=== PATIENT | male | born 1970 | race Caucasian/White ===

== ENCOUNTER 2017-03-29 07:48 | Day surgery (SDC) | payer BC ==
[~2017-03-29] VITALS: Ht 167.6 cm; Wt 63.7 kg
[2017-03-29 09:00] VITALS: Ht 167.6 cm; Wt 63.7 kg
[2017-03-29 09:21] VITALS: BP 149/82; PULSE 60; RESP 18
[2017-03-29] MEDS ORDERED: FENTAnyl 50 MCG/ML VIAL ONE (10:02)
[2017-03-29] MEDS ORDERED: MIDAZOLAM 1 MG/ML 2 ML INJ ONE ×2 (10:02→10:03)
[2017-03-29 10:35] VITALS: BP 144/87; PULSE 60; RESP 19
--- NOTE | 2017-03-29 10:53 | GILP ---
DATE OF PROCEDURE: 03/29/2017 NAME OF PROCEDURE: Colonoscopy. SURGEON: Gama Caceres MD PREOPERATIVE DIAGNOSES: Rectal bleeding. POSTOPERATIVE DIAGNOSES: 1. Colonoscopy all the way to the cecum. 2. Internal hemorrhoids. 3. No colon neoplasm was identified. INDICATION FOR THE PROCEDURE: Mr. Matt Vazquez is a 46-year-old male patient who had rectal ble eding. Patient was scheduled for colonoscopy for further evaluation. The procedure and possible complications are well explained to the patient, he understood and consen eben to the procedure. DESCRIPTION OF PROCEDURE: Under the influence of fentanyl and Versed, the colonoscope was carefully introduced in the rectum and under direct vision, it was advanced all the way to the cecum. FINDINGS: The patient had internal hemorrhoids. No colitis or neoplasm was identified. He tolerated the procedure very well and there was no complication from the procedure. At the end o f the procedure, he was awake with stable vital signs and he was discharged home to the care of his family. IMPRESSION: 1. Colonoscopy all the way to the cecum. 2. Internal hemorrhoids. PLAN: 1. Anusol-HC suppositories at bedtime. 2. Patient will need next screening colonoscopy in 10 years. Dictated By: GAMA ALBARADO/NTS Conf#: [id number] DID#: [id number] CC: FELISA JULES MD; HUONG LANG MD;*End*
--- NOTE | 2017-03-30 07:18 | CONS ---
DATE OF ADMISSION: 03/29/2017 DATE OF CONSULTATION: TYPE OF CONSULTATION: Preoperative gastroenterology. Dear Dr. Lennon, I thank you very much for this kind referral. HISTORY OF PRESENT ILLNESS: Mr. Matt Vazquez is a 46-year-old male patient who has been referre d to me for further evaluation of rectal bleeding. There is no past history of colon neoplasm or in flammatory bowel disease. His appetite has been good, and he is not losing any weight. He does not have any upper abdominal pain, nausea or vomiting. There is no history of peptic ulcer disease. H e is not taking any nonsteroidal anti-inflammatory agents. There is no history of gallstones. He d oes not have any fever, chills or jaundice. There is no history of liver disease. He is not a hype rtensive or diabetic. He does not have any heart disease or lung problem. There is no history of k idney disease. SOCIAL HISTORY: He is a nonsmoker. He does not abuse alcohol. FAMILY HISTORY: Negative for gastrointestinal tract neoplasm. ALLERGIES: THERE IS NO HISTORY OF SIGNIFICANT DRUG ALLERGY. MEDICATIONS: None. PHYSICAL EXAMINATION: GENERAL: He is 5 feet 6 inches tall, and he weighs 136 pounds. HEART: Normal first and second heart sounds. LUNGS: Clear. ABDOMEN: Soft without any distention. Liver and spleen are not palpable. There are no masses. Th ere is no focal tenderness. Normal bowel sounds are heard. RECTAL: Examination deferred per the patient's request. He says that it was done by the primary MD and no abnormality was detected. It will be done at the time of colonoscopy. CENTRAL NERVOUS SYSTEM: Examination does not reveal any focal neurological deficit. IMPRESSION: Rectal bleeding. PLAN: Colonoscopy for further evaluation. The procedure and possible complications are well explained to the patient. He understands and cons ents to the procedure. I thank you once again. With warmest personal regards, Dictated By: ALBAN ALBARADO/ABBIE Conf#: [id number] DID#: [id number]
== END 2017-03-29 12:56 | disposition home or self-care (01) ==
LOC: GIL 07:48
PROVIDERS: ATTEND Internal Medicine Gastroenterology
DX: K64.8 Other hemorrhoids (principal)
CPT/HCPCS: 45378; J2250; J3010